=== PATIENT | male | born 1950 | race Caucasian/White ===

== ENCOUNTER 2021-04-15 15:24 | Inpatient (IN) | payer MEDICARE, SELFPAY ==
[2021-04-15] VITALS (36 sets, daily range): BP systolic 79–136; BP diastolic 46–100; PULSE 65–101; RESP 13–28; TEMP 36.3–36.8; O2SAT 92–99; BMI 33.5
--- NOTE | ~2021-04-15 | CT_ITS ---
EXAMINATION: CTA chest PE protocol DATE: 04/15/2021 17:47 INDICATION: Chest pain, cough, fever and elevated d-dimer TECHNIQUE: Computed tomography (CT) pulmonary angiogram of the chest was performed with 100 mL Omnipa que-350 intravenous contrast. Additional 3D reconstructions utilizing coronal maximum intensity proje ction (MIP) were performed. Automated exposure control and iterative reconstruction technique were em ployed. The dose-length product was 700.32 mGy-cm. COMPARISON: None FINDINGS: Suboptimal contrast opacification of the pulmonary arteries with the peak of the contrast bolus in th e pulmonary veins and left heart. There is mild streak artifact from dense contrast in the superior v raul cava and right atrium. Mild respiratory motion in the bilateral lower lung zones. Together this d ecreases sensitivity in the basilar segmental and subsegmental pulmonary arteries. No definitive pulm onary embolism. Elevation the right hemidiaphragm with discoid and basilar compressive atelectasis in the right lower lobe. Multiple small groundglass nodules in the left lower lobe and one in the poste rior right upper lobe most suspicious for multifocal pneumonia. No pulmonary edema or pleural effusio n. A few small bilateral calcified pulmonary nodules along with calcified right hilar lymph nodes con sistent with old granulomatous disease. Heart size is normal. Atherosclerotic coronary artery calcifi cations. No pericardial effusion. Thoracic aorta is normal in caliber with no dissection. No patholog ically enlarged thoracic lymphadenopathy. Small region of cortical scarring at the lower pole of the right kidney. There are bridging osteophytes at multiple levels in the spine, consistent with diffuse idiopathic skeletal hyperostosis (DISH). IMPRESSION: 1. No definitive pulmonary most . Sensitivity is significantly decreased in the segmental and subsegm ental pulmonary arteries of the lower lungs due to suboptimal contrast opacification and respiratory motion. 2. Multiple groundglass nodules in the left lower lobe and one in the posterior right upper lobe most suspicious for multifocal pneumonia. 3. Atelectasis in the right lower lobe with elevation the right hemidiaphragm. Reviewed, dictated and finalized at location A. [facility] IMPRESSION: 1. No definitive pulmonary most . Sensitivity is significantly decreased in the segmental and subsegmental pulmonary arteries of the lower lungs due to subopt imal contrast opacification and respiratory motion. 2. Multiple groundglass nodules in the left lower lobe and one in the posterior right upper lobe most suspicious for multifocal pneumonia. 3. Atelectasis in the right lower lobe with elevation the right hemidiaphragm.
--- NOTE | ~2021-04-15 | XR_ITS ---
EXAMINATION: XR chest 1V portable DATE: 04/15/2021 16:36 INDICATION: Shortness of breath, cough and fever TECHNIQUE: frontal view of the chest was obtained. COMPARISON: None FINDINGS: Linear band of discoid atelectasis/scarring at the right lung base projecting over the elevated right hemidiaphragm. No other airspace opacities, pulmonary edema, pleural effusion or pneumothorax. The c ardiomediastinal silhouette is normal. IMPRESSION: 1. Elevation right hemidiaphragm with discoid atelectasis at the right lung base. Reviewed, dictated and finalized at location A. [facility] IMPRESSION: 1. Elevation right hemidiaphragm with discoid atelectasis at the right lung bas e.
--- NOTE | 2021-04-15 16:21 | ECG_ITS ---
Measurements Intervals [place] Rate: 89 P: 65 IN: 175 QRS: 58 QRSD: 97 T: 53 QT: 362 QTc: 441 Interpretive Statements SINUS RHYTHM BORDERLINE ST-T WAVE ABNORMALITY- ANT/HIGH LAT LEADS BASELINE ARTIFACT- I, II, III, AVR, AVL, AVF, V1-V6 BORDERLINE ECG Electronically Signed On 04-16-2021 7:53:03 [employer] by Bob Mcmullen D.O.
[2021-04-15] MEDS: SODIUM CHLORIDE 0.9% IV 1,000 ML 999 ML IV CONT ×3 (16:51→17:46)
[2021-04-15 16:52] LABS: Alveolar/Arterial O2 Gradient 46.7 mmHg; Base Excess ABG -2.5 mEq/l (+/-2.0); Carboxyhemoglobin 0.6 % THb (0-2.0); Fractional Inspired Oxygen 21 %; HCO3 ABG 20.6 mEq/l (22.0-26.0); Methemoglobin ABG 0.2 %THb (0-1.5); Oxygen Content ABG 17.7 %vol (16.0-22.0); Oxyhemoglobin 91.8 % THb (90.0-100.0); PCO2 ABG 30.9 mmHg (35.0-45.0); PO2 FiO2 Ratio Arterial Blood 3.14 %; Reduced Hemoglobin 7.4 %THb (0-5.0); Total Hemoglobin 13.7 g/dL (12.0-18.0); pH ABG 7.441 (7.350-7.450)
[2021-04-15 16:53] LABS: Device ROOM AIR; Modified Allen's Test Pass; Site Drawn RIGHT RADIAL
[2021-04-15 17:00] LABS: Basophils Absolute Auto 0.1 K/mm3 (0.0-0.1); Basophils Percent Auto 0.3 % (0.2-1.2); Eosinophils Percent Auto 0.1 % (0-4.4); Hematocrit 38.6 % (42.0-52.0); Hemoglobin 13.3 g/dL (14.0-18.0); Immature Granulocyte Absolute 0.07 K/mm3 (0.00-0.031); Immature Granulocyte Percent A 0.4 % (0-0.5); Lymphocytes Absolute Auto 1.88 K/mm3 (0.9-3.2); Lymphocytes Percent Auto 11.7 % (18.3-44.2); Mean Corpuscular HGB Conc 34.5 g/dl (32-36); Mean Corpuscular Volume 95.8 fl (80-100); Mean Platelet Volume 10.7 fl (7.4-10.4); Monocytes Absolute Auto 1.2 K/mm3 (0.1-0.6); Monocytes Percent Auto 7.7 % (2.6-8.5); Neutrophils Absolute Auto 12.8 K/mm3 (1.3-6.7); Neutrophils Percent Auto 79.8 % (45.5-73.1); Platelet Count Result 175 k/mm3 (150-375); Red Blood Count 4.03 M/mm3 (4.6-6.20); Red Cell Distribution Width 12.7 % (11.5-14.5)
--- NOTE | 2021-04-15 17:02 | ED.URI ---
HPI - URI/Sore Throat General Chief Complaint: Upper Respiratory Infection Stated Complaint: cough, fever, sob Time Seen by Provider: 04/15/21 16:08 Source: patient and RN notes reviewed Mode of arrival: ambulatory Limitations: no limitations History of Present Illness HPI Narrative: This is a 70 year old male who presents for evaluation of URI symptoms and shortness of breath. He reports having intermittent episodes of runny nose, cough and low grade fevers over past 1 month. Over past 3 days, he is having fever as high as 102 F. He is also having worsening shortness of breath with exertion and a worsening productive cough. He reports mid chest pressure, nonradiating that only occurs with coughing. He denies nausea, vomiting, loss of taste or smell. He denies abdominal pain or headache. He has taken 3 at home covid test over past 2 weeks. He has been vaccinated for covid with booster and influenza. Related Data Allergies Allergy/AdvReac Type Severity Reaction Status Date / Time No Known Allergies Allergy Verified 04/15/21 16:09 Review of Systems Review of Systems: All systems reviewed & are unremarkable except as noted in HPI and below PMFSH Past Medical History Medical History (Updated 04/15/21 @ 19:06 by Abigail Phillip MD) AAA (abdominal aortic aneurysm) Anxiety Hypertension Myocardial infarction Surgical History Surgical History (Updated 04/15/21 @ 17:04 by Abigail Phillip MD) History of back surgery S/P AAA repair Social History Social History (Updated 04/15/21 @ 17:05 by Abigail Phillip MD) Smoking status: Former smoker Exam Const: General: no acute distress and alert Orientation/consciousness: patient oriented x3 Eyes: EOM: EOMs intact bilaterally Resp: Effort & Inspection: normal respiratory effort, not labored, no retractions and not tachypneic Auscultation: rhonchi Cardio: Rate: regular rate Rhythm: regular rhythm Heart sounds: no murmurs GI: GI Palp: Yes Soft to palpation, No Tenderness to palpation present (GI) and No Guarding due to palpation present (GI) Auscultation: normal bowel sounds Skin: General skin exam: normal color Neuro: General: patient oriented x3, moves all extremities and CN's II-XI intact bilaterally Extrem: General: normal to inspection Psych: Mental Status: mental status grossly normal Affect: normal affect Course Reevaluation(s) Reevaluation #1: Patient states he feels much better. BP is now 93/56. I discussed with Jazmin Antonio who accepts patient to hospitalist service. I spoke with Dr. Benavides who states if patient's BP continues to improve after more fluids he can be admitted to IMU but if he is still hypotensive then he can go to ICU. Date: 04/15/21 Time: 19:04 Vital Signs Vital signs: Vital Signs Temperature 97.4 F L 04/15/21 15:29 Pulse Rate 101 H 04/15/21 15:29 Respiratory Rate 28 H 04/15/21 15:29 Blood Pressure 136/100 H 04/15/21 15:29 Pulse Oximetry 93 04/15/21 15:29 Temperature 97.4 F L 04/15/21 15:29 Pulse Rate 67 04/15/21 20:06 Respiratory Rate 15 04/15/21 20:06 Blood Pressure 107/59 L 04/15/21 19:57 Pulse Oximetry 95 04/15/21 20:02 MDM - URI/Sore Throat Lab Data Attestation: I reviewed the patient's lab results. Result diagrams: 04/15/21 16:40 04/15/21 16:40 Labs: Lab Results 04/15/21 04/15/21 04/15/21 Range/Units 16:37 16:40 16:40 WBC 16.0 H (4.5-10.0) K/mm3 RBC 4.03 L (4.6-6.20) M/mm3 Hgb 13.3 L (14.0-18.0) g/dL Hct 38.6 L (42.0-52.0) % MCV 95.8 (80-100) fl MCH 33.0 (26-34) pg MCHC 34.5 (32-36) g/dl RDW 12.7 (11.5-14.5) % Plt Count 175 (150-375) k/mm3 MPV 10.7 H (7.4-10.4) fl Immature Gran % (Auto) 0.4 (0-0.5) % Neut % (Auto) 79.8 H (45.5-73.1) % Lymph % (Auto) 11.7 L (18.3-44.2) % [place] % (Auto) 7.7 (2.6-8.5) % Eos % (Auto) 0.1 (0-4.4) % Baso % (Auto)
[2021-04-15 17:09] LABS: INR 1.1; Prothrombin Time 14.2 Seconds (11.1-14.7)
[2021-04-15 17:10] LABS: Partial Thromboplastin Time 30.3 SECONDS (22.3-36.8)
[2021-04-15 17:11] LABS: Lactic Acid Reflex 1.8 mmol/L (0.7-2.1)
[2021-04-15 17:12] LABS: D Dimer 2.35 ug/mL (<0.48)
[2021-04-15 17:14] LABS: Alanine Aminotransferase 20 U/L (4-50); Albumin Level 4.6 g/dL (3.5-5.1); Alkaline Phosphatase 79 U/L (38-126); Anion Gap 10 mmol/L (8-16); Aspartate Amino Transferase 30 U/L (17-59); Bilirubin,Total 1.1 mg/dL (0.2-1.3); Blood Urea Nitrogen 23 mg/dL (9-20); CRP 3.8 mg/dL (<1.0); Calcium 9.5 mg/dL (8.4-10.2); Carbon Dioxide 25 mmol/L (22-30); Chloride 98 mmol/L (98-107); Estimated CRCL calculation 66 ml/min; Estimated Glomerular Filt Rate 60; Glucose 123 mg/dL (65-110); Magnesium 1.7 mg/dL (1.6-2.3); Potassium 3.7 mmol/L (3.4-5.0); Sodium 133 mmol/L (137-145)
[2021-04-15 17:24] LABS: NT Pro B Type Natriuretic Pept 171 pg/mL (5-100); Troponin I < 0.012 ng/mL (0.000-0.034)
[2021-04-15] MEDS: SODIUM CHLORIDE 0.9% IV 500 ML 999 ML IV CONT (19:07)
[2021-04-15 19:18] LABS: SARS-CoV-2 RNA PCR Negative
--- NOTE | 2021-04-15 19:27 | PM.IMHP ---
H&P: HPI History of Present Illness Date/Time: 04/15/21 19:27 Chief Complaint: Shortness of breath. Narrative: This is a 70-year-old male with past medical history significant for hypertension, [place], abdominal aortic aneurysm, COVID Long hauler, chronic hypoxic respiratory failure, chronic cough. Patient presents to the emergency room due to shortness of breath and cough that is persistent with wheezing as well. Patient states that this has been happening for long time now ever since he had COVID. Patient denies any fevers, rigors, chills, there is scanty production on of clear phlegm with the cough, no PND ,no orthopnea, no leg swelling, no dizziness, no syncope or near syncope ,no chest pain, no nausea, no vomiting, no abdominal pain, no calves pain. Preliminary workup was significant for CT of chest angio for ground-glass opacities, a chest x-ray showed right-sided hemidiaphragm paralysis. Patient is been admitted for further evaluation management and treatment. Review of Systems Review of Systems: Shortness of breath, persistent dry cough, wheezing. Constitutional: Constitutional: Denies chills, Denies fatigue, Denies fever(s), Denies malaise, Denies night sweats and Denies weakness Eyes: Eyes: Denies change in vision ENT: Denies dysphagia, Denies vertigo, Denies dizziness, Denies nasal congestion, Denies nasal discharge, Denies nasal obstruction and Denies odynophagia Cardiovascular: Cardiovascular: Denies chest pain, Denies claudication, Denies leg edema, Denies lightheadedness, Denies radiating jaw, neck or arm pain, Denies palpitations and Reports dyspnea on exertion Respiratory: Respiratory: Reports cough, Reports dyspnea and Reports wheezing Gastrointestinal: Gastrointestinal: Denies abdominal pain, Denies dyspepsia, Denies heartburn, Denies nausea and Denies vomiting Genitourinary: Genitourinary: Reports no additional male genitourinary complaints, Reports as per HPI and Denies dysuria Musculoskeletal: Musculoskeletal: Denies arthralgias, Denies joint swelling and Denies muscle weakness Integumentary/Breasts: Skin/Breast: Denies rash Neurologic: Denies focal weakness and Denies Sensory deficit (Neuro) Psychiatric: Psychiatric: Reports no additional psychiatric complaints and Reports as per HPI Endocrine: Endocrine: Denies cold intolerance, Denies flushing, Denies heat intolerance, Denies polyphagia, Denies polydipsia, Denies polyuria and Denies palpitations Hematologic/Lymphatic: Hematologic/Lymphatic: Reports no additional hematologic/lymphatic complaints and Reports as per HPI Allergic/Immunologic: Allergic/Immunologic: Reports no additional allergic/immunologic complaints and Reports as per HPI PMFSH Past Medical History Medical History (Updated 04/16/21 @ 02:48 by Beck Das MD) AAA (abdominal aortic aneurysm) Anxiety Hypertension Myocardial infarction Surgical History Surgical History (Updated 04/15/21 @ 17:04 by Abigail Phillip MD) History of back surgery S/P AAA repair Social History Social History (Updated 04/15/21 @ 17:05 by Abigail Phillip MD) Smoking packs per day: 1.5 Smoking cigarettes per day: 30.0 Years smoked: 20 Smoking pack-years: 30.00 Smoking status: Former smoker Spiritual care concerns: No Meds Home Medications and Allergies Home Medications Medication Instructions Recorded Confirmed Type albuterol sulfate 2 puff INHALATION DAILY 04/15/21 04/15/21 History aspirin [Aspir-81] 1 mg PO DAILY 04/15/21 04/15/21 History citalopram 20 mg PO DAILY 04/15/21 04/15/21 History diltiazem HCl 180 mg PO HS 04/15/21 04/15/21 History hydrocodone-acetaminophen 1 tablet PO Q6H 04/15/21 04/15/21 History isosorbide mononitrate 30 mg PO DAILY 04/15/21 04/15/21 History lisinopril-hydrochlorothiazide 2 tablet PO HS 04/15/21 04/15/21 History metoprolol succinate 1 mg PO DAILY 04/15/21 04/15/21 History mv,Ca,tyw-wgfd-VH-lycopene 1 tablet PO DAILY 04/15/21 04/15/21 History [C
[2021-04-15] MEDS: IPRATROPIUM BR 0.02% INH SOLN 0.5 MG/2.5 ML VIAL INHALATION (19:57)
[2021-04-15] MEDS: ALBUTEROL SULFATE NEB 2.5 MG/0.5 ML INH 5 MG INHALATION (19:57)
[2021-04-15 20:19] LABS: Add Urine Microscopic? NO; Appearance Urine Clear (Clear); Bilirubin Urine Negative (Negative); Blood Urine Negative (Negative); Color Urine Yellow (Yellow); Glucose Urine UA Negative (Negative); Ketones Urine Negative (Negative); Leukocyte Esterase Ur Negative LEU/UL (Negative); Nitrate Urine Negative (Negative); Protein Urine Negative (Negative); Urobilinogen Urine Negative mg/dL (<2.0)
[2021-04-15 20:22] LABS: Specific Grav Ur 1.031 (1.001-1.035)
[2021-04-15] MEDS: SODIUM CHLORIDE 0.9% IV 1,000 ML 125 ML IV CONT (22:59)
[2021-04-15] MEDS: HYDROcodone/acetaminophen (*CRX) 7.5-325 MG TABLET 1 TAB PO (23:00)
[2021-04-15] MEDS: dilTIAZem HCL CD 180 MG CAP.ER.24H PO (23:00)
--- NOTE | 2021-04-15 23:55 | ADMGEN ---
This patient, Alex Johnson, was admitted to IMU Room 206-02 on 04/15/21 at 2100. Patient/family oriented to hospital policies and general routines including ID bracelet, bed and alarms, visiting hours, pain management, procedures, bathroom and other care routines, personal items, smoking policy, room service/diet, and visiting hours. Information on how to activate the Rapid Response Team has been discussed. Patient/Family are encouraged to report perceived risks to care and to ask questions if they do not understand what they are told or what they should do.
[2021-04-16] VITALS (27 sets, daily range): BP systolic 94–133; BP diastolic 53–73; PULSE 54–84; RESP 16–22; TEMP 35.6–36.9; O2SAT 92–97
--- NOTE | 2021-04-16 | ECHO_ITS ---
Patient Info Name: Alex Johnson Age: 70 years : 1950 Gender: Male Ht: 73 in Wt: 253 lbs BSA: 2.47 m2 HR: 60 bpm BP: 133 / 64 mmHg Heart Rhythm: Sinus Rhythm Technical Quality: Fair Exam Date: 04/16/2021 8:51 AM Exam Location: [facility] Patient Status: Outpatient Admit Date: 04/15/2021 Staff Ordering Physician: Beck Das MD Applications Specialist: Bettina Todd RDCS Attending Provider: Beck Das MD Referring Physician: Pippa ROMERO; Exam Type: CA echo doppler color flow Study Info Indications R06.02 - Shortness of breath Complete two-dimensional, color flow and Doppler transthoracic echocardiogram is performed. Summary 1. Complete two-dimensional, color flow and Doppler transthoracic echocardiogram is performed. 2. Left ventricular chamber dimension is normal. 3. Left ventricular systolic function is normal, estimated at 55-60%. 4. Left atrial chamber dimension is mildly enlarged. 5. There is trace mitral valve regurgitation. 6. There is mild aortic valve sclerosis. Left Ventricle Left ventricular chamber dimension is normal. Left ventricular systolic function is normal, estimated at 55-60%. The left ventricular diastolic function is normal. Right Ventricle Right ventricular chamber dimension is normal. Left Atria Left atrial chamber dimension is mildly enlarged. Right Atria Right atrial chamber dimension is normal. Aortic Valve The aortic valve is trileaflet. There is mild aortic valve sclerosis. Pulmonic Valve The pulmonic valve is normal. Mitral Valve The mitral valve has normal leaflets. There is trace mitral valve regurgitation. Tricuspid Valve The tricuspid valve leaflets are normal. Pericardium/Pleural The pericardium appears normal. Aorta The aortic root size at the sinus of Valsalva is normal. Left Ventricular Outflow Tract Name Value Normal LVOT 2D LVOT Diameter 2.0 cm LVOT Doppler LVOT Peak Gradient 4 mmHg LVOT Mean Gradient 2 mmHg LVOT VTI 25 cm LVOT VTI/AV VTI Ratio 0.8 LVOT Stroke Volume 76 ml Pulmonic Valve Name Value Normal RVOT Doppler RVOT Peak Gradient 2 mmHg PV Doppler PV Peak Gradient 3 mmHg Mitral Valve Name Value Normal MV Doppler MV Decel [facility] 492 cm/s2 MV PHT 55 ms MV Area
[2021-04-16] MEDS: IPRATROPIUM BR 0.02% INH SOLN 0.5 MG/2.5 ML VIAL INHALATION ×4 (02:20→20:10)
[2021-04-16] MEDS: ALBUTEROL SULFATE NEB 2.5 MG/0.5 ML INH 5 MG INHALATION ×4 (02:20→20:10)
[2021-04-16] MEDS: HYDROcodone/acetaminophen (*CRX) 7.5-325 MG TABLET 1 TAB PO ×4 (03:55→20:42)
[2021-04-16 05:07] LABS: Basophils Percent Auto 0.2 % (0.2-1.2); Eosinophils Absolute Auto 0.1 K/mm3 (0-0.3); Eosinophils Percent Auto 0.8 % (0-4.4); Hematocrit 32.2 % (42.0-52.0); Hemoglobin 10.6 g/dL (14.0-18.0); Immature Granulocyte Absolute 0.04 K/mm3 (0.00-0.031); Immature Granulocyte Percent A 0.4 % (0-0.5); Immature Platelet Fraction Pct 4.9 % (0.9-11.2); Lymphocytes Absolute Auto 1.75 K/mm3 (0.9-3.2); Lymphocytes Percent Auto 16.7 % (18.3-44.2); Mean Corpuscular HGB Conc 32.9 g/dl (32-36); Mean Corpuscular Hemoglobin 33.1 pg (26-34); Mean Corpuscular Volume 100.6 fl (80-100); Mean Platelet Volume 10.5 fl (7.4-10.4); Monocytes Absolute Auto 0.9 K/mm3 (0.1-0.6); Monocytes Percent Auto 8.1 % (2.6-8.5); Neutrophils Absolute Auto 7.7 K/mm3 (1.3-6.7); Neutrophils Percent Auto 73.8 % (45.5-73.1); Platelet Count Result 146 k/mm3 (150-375); Red Cell Distribution Width 12.8 % (11.5-14.5); White Blood Count 10.5 K/mm3 (4.5-10.0)
[2021-04-16 05:16] LABS: Alanine Aminotransferase 16 U/L (4-50); Albumin Level 3.4 g/dL (3.5-5.1); Alkaline Phosphatase 54 U/L (38-126); Anion Gap 6 mmol/L (8-16); Aspartate Amino Transferase 26 U/L (17-59); Bilirubin,Total 0.6 mg/dL (0.2-1.3); Blood Urea Nitrogen 19 mg/dL (9-20); Calcium 8.5 mg/dL (8.4-10.2); Carbon Dioxide 25 mmol/L (22-30); Chloride 108 mmol/L (98-107); Estimated CRCL calculation 98 ml/min; Estimated Glomerular Filt Rate > 60; Glucose 101 mg/dL (65-110); Potassium 3.5 mmol/L (3.4-5.0); Sodium 139 mmol/L (137-145)
[2021-04-16 05:24] LABS: NT Pro B Type Natriuretic Pept 276 pg/mL (5-100)
--- NOTE | 2021-04-16 11:30 | PM.CNPUL ---
Assessment and Plan Assessment and plan (1) COPD exacerbation: Code(s): J44.1 - Chronic obstructive pulmonary disease with (acute) exacerbation Status: Acute Assessment and Plan: This 70-year-old man presented with few week history of shortness of breath upper respiratory system she does cough and wheezing. Chest imaging studies showed chronically elevated right hemidiaphragm and small infiltrate in left lower lobe suggestive of possible lower respiratory tract infection. The patient has been treated with IV fluids for low blood pressure and also with antibiotics with some improvement. He continues to be on IV fluids. Physical exam he has diffuse wheezing which in conjunction with the patient's history and the chest CT findings suggest probable COPD exacerbation. I will continue with current antibiotic regimen, decrease IV fluid rate, continue with nebulized short-acting bronchodilators. I started the patient on IV steroids. (2) Elevated diaphragm: Code(s): J98.6 - Disorders of diaphragm Status: Acute History of Present Illness History of Present Illness Consult date: 04/16/21 Chief complaint: dehydration, sepsis, pneomonia Narrative: This 70-year-old man presented with cough fever and shortness of breath. The patient has had upper respiratory symptoms on and off for more than a month. He also had febrile illness with low-grade temperature cough and wheezing also for for few weeks. Patient never had history of COPD or asthma. He used to smoke 1.5 packs per day for more than 20 years. He quit 10 years ago. The patient has been treated with antibiotics with some improvement since admission. patient has been treated with IV fluids presumably for borderline low blood pressure. blood cultures are negative so far. Chest imaging studies with chest x-ray and chest CT showed right diaphragm elevation with associated atelectasis in the right lower lobe, and small infiltrates /ground-glass opacities in the left lower lobe. There is also evidence of a bronchial wall thickening and mild emphysema. Review of Systems Review of Systems: The patient reports some weight gain over the last couple of years. He has had a history of nasal allergies. He sleeps in a recliner because of back problems. Has history of acid reflux disease and has been on medications. He has no nausea vomiting diarrhea or abdominal pain. He has had some urinary problems related to enlarged prostate. He has no lower extremity edema. He had a previous sleep study showed no evidence of sleep apnea. The remainder of the 12 point system review is negative PMFSH Past Medical History Medical History (Updated 04/16/21 @ 11:40 by Parviz Jones MD) AAA (abdominal aortic aneurysm) Anxiety Hypertension Myocardial infarction Surgical History Surgical History (Updated 04/15/21 @ 17:04 by Abigail Phillip MD) History of back surgery S/P AAA repair Family History Family History (Updated 04/16/21 @ 06:48 by Dorina Ortiz RN) Sibling Cancer Father Cancer Mother Tuberculosis Father Heart attack Social History Social History (Updated 04/15/21 @ 17:05 by Abigail Phillip MD) Smoking packs per day: 1.5 Smoking cigarettes per day: 30.0 Years smoked: 20 Smoking pack-years: 30.00 Smoking status: Former smoker Spiritual care concerns: No Meds Home Medications and Allergies Home Medications Medication Instructions Recorded Confirmed Type albuterol sulfate 2 puff INHALATION DAILY 04/15/21 04/15/21 History aspirin [Aspir-81] 1 mg PO DAILY 04/15/21 04/15/21 History citalopram 20 mg PO DAILY 04/15/21 04/15/21 History diltiazem HCl 180 mg PO HS 04/15/21 04/15/21 History hydrocodone-acetaminophen 1 tablet PO Q6H 04/15/21 04/15/21 History isosorbide mononitrate 30 mg PO DAILY 04/15/21 04/15/21 History lisinopril-hydrochlorothiazide 2 tablet PO HS 04/15/21 04/15/21 History metoprolol succinate 1 mg
[2021-04-16] MEDS: PANTOPRAZOLE 40 MG TABLET PO (12:02)
[2021-04-16] MEDS: ISOSORBIDE MONONITRATE 30 MG TAB.ER.24H PO (12:02)
[2021-04-16] MEDS: ASPIRIN 81 MG ENTERIC TABLET PO (12:02)
[2021-04-16] MEDS: THERAPEUTIC MULTIVITAMINS/MINERALS TAB (*BKC) 1 TABLET PO (12:02)
[2021-04-16] MEDS: METOPROLOL SUCCINATE EXT REL 50 MG TABCR PO (12:03)
[2021-04-16] MEDS: CITALOPRAM HYDROBROMIDE 20 MG TABLET PO (12:03)
[2021-04-16] MEDS: ROSUVASTATIN 10 MG TABLET 20 MG PO (12:03)
[2021-04-16] MEDS: SODIUM CHLORIDE 0.9% IV 1,000 ML 125 ML IV CONT ×2 (12:06→20:44)
[2021-04-16] MEDS: ENOXAPARIN 40 MG/0.4 ML SYRINGE SUB-Q (12:17)
--- NOTE | 2021-04-16 14:45 | PM.IMPN ---
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 (2) Persistent cough: Code(s): R05.3 - Chronic cough Status: Acute Assessment and Plan: Supportive care Continue to monitor (3) COVID-19 long hauler manifesting chronic dyspnea: Code(s): R06.09 - Other forms of dyspnea; U09.9 - Post COVID-19 condition, unspecified Status: Acute Assessment and Plan: Pulmonology consulted Subjective Date/time seen: 04/16/21 14:45 Chief Complaint: Shortness of breath. HPI:Narrative: This is a 70-year-old male with past medical history significant for hypertension, [place], abdominal aortic aneurysm, COVID Long hauler, chronic hypoxic respiratory failure, chronic cough. Patient presents to the emergency room due to shortness of breath and cough that is persistent with wheezing as well. Patient states that this has been happening for long time now ever since he had COVID. Patient denies any fevers, rigors, chills, there is scanty production on of clear phlegm with the cough, no PND ,no orthopnea, no leg swelling, no dizziness, no syncope or near syncope ,no chest pain, no nausea, no vomiting, no abdominal pain, no calves pain. Preliminary workup was significant for CT of chest angio for ground-glass opacities, a chest x-ray showed right-sided hemidiaphragm paralysis. Patient is been admitted for further evaluation management and treatment. 04/16/2021 interval history: patient is a 70-year-old male presented with a cough shortness of breath and wheezing patient seen by rotary veneer machine operator and suspect patient has exacerbation of COPD started the patient on methylprednisone, DuoNeb and continued ceftriaxone and azithromycin, patient states is feeling much better compared to when he arrived, will continue present management and further recommendation to follow. Review of Systems Review of Systems: All systems reviewed & are unremarkable except as noted in HPI and below Exam Narrative: Patient is comfortable, NAD HEENT: eyes are clear and none icteric LUNGS: bilateral fair air entry with wheezing and rhonchi HEART: RR S1S2 ABD: BS+, Soft and nontender Lower extremities: no edema SKIN: nonjaundiced Neuro: grossly intact. Objective Data Vital Signs Vital Signs: Vital Signs - 24 hr 04/15/21 15:29 04/15/21 16:09 04/15/21 16:10 Temperature 97.4 F L Pulse Rate 101 H 90 85 Respiratory Rate 28 H 19 21 H Blood Pressure 136/100 H 104/64 104/64 Pulse Oximetry 93 92 93 04/15/21 16:21 04/15/21 16:31 04/15/21 16:32 Temperature Pulse Rate 93 83 87 Respiratory Rate 13 17 18 Blood Pressure Pulse Oximetry 96 94 97 04/15/21 16:45 04/15/21 16:46 04/15/21 16:47 Temperature Pulse Rate 83 81 84 Respiratory Rate 26 H 18 20 Blood Pressure 80/46 L Pulse Oximetry 92 92 92 04/15/21 17:00 04/15/21 17:01 04/15/21 17:15 Temperature Pulse Rate 76 76 71 Respiratory Rate 19 19 15 Blood Pressure 81/52 L Pulse Oximetry 94 92 92 04/15/21 17:16 04/15/21 17:23 04/15/21 17:44 Temperature Pulse Rate 76 70 Respiratory Rate 14 15 Blood Pressure 80/46 L 82/48 L Pulse Oximetry 92 92 94 04/15/21 17:45 04/15/21 17:46 04/15/21 17:47 Temperature Pulse Rate 69 69 70 Respiratory Rate 19 18 13 Blood Pressure 85/51 L Pulse Oximetry 92
[2021-04-16] MEDS: methylPREDNISolone SOD SUCC 40 MG VIAL IV PUSH ×2 (15:53→20:41)
--- NOTE | 2021-04-16 16:13 | PC.NURSE ---
Notified Dr crawford patients blood oressure and pulse have been low. Patient also stated his pulse and blood pressure have been low at home. Dr Crawford ordered Metoprolol dose to be cut in half from 50mg daily to 25mg daily.
[2021-04-16] MEDS: hydroCHLOROthiazide 25 MG TABLET PO (20:41)
[2021-04-16] MEDS: lisinopriL 20 MG TABLET 40 MG PO (20:42)
[2021-04-16] MEDS: dilTIAZem HCL CD 180 MG CAP.ER.24H PO (20:43)
[2021-04-16] MEDS: polyethylene glycoL 3350 17 GM POWD.PACK PO (23:04)
[2021-04-17] VITALS (22 sets, daily range): BP systolic 115–146; BP diastolic 56–78; PULSE 57–77; RESP 15–20; TEMP 36.1–36.6; O2SAT 92–97
[2021-04-17] MEDS: ALBUTEROL SULFATE NEB 2.5 MG/0.5 ML INH 5 MG INHALATION ×4 (01:38→20:14)
[2021-04-17] MEDS: IPRATROPIUM BR 0.02% INH SOLN 0.5 MG/2.5 ML VIAL INHALATION ×4 (01:38→20:14)
[2021-04-17] MEDS: HYDROcodone/acetaminophen (*CRX) 7.5-325 MG TABLET 1 TAB PO ×4 (03:41→22:00)
[2021-04-17] MEDS: methylPREDNISolone SOD SUCC 40 MG VIAL IV PUSH (05:15)
[2021-04-17 06:17] LABS: Anion Gap 9 mmol/L (8-16); Blood Urea Nitrogen 13 mg/dL (9-20); Calcium 9.2 mg/dL (8.4-10.2); Carbon Dioxide 24 mmol/L (22-30); Chloride 105 mmol/L (98-107); Estimated CRCL calculation 149 ml/min; Estimated Glomerular Filt Rate > 60; Glucose 171 mg/dL (65-110); Potassium 3.5 mmol/L (3.4-5.0); Sodium 138 mmol/L (137-145)
[2021-04-17] MEDS: SODIUM CHLORIDE 0.9% IV 1,000 ML 125 ML IV CONT (08:53)
[2021-04-17] MEDS: ISOSORBIDE MONONITRATE 30 MG TAB.ER.24H PO (08:55)
[2021-04-17] MEDS: ASPIRIN 81 MG ENTERIC TABLET PO (08:56)
[2021-04-17] MEDS: ROSUVASTATIN 10 MG TABLET 20 MG PO (08:56)
[2021-04-17] MEDS: THERAPEUTIC MULTIVITAMINS/MINERALS TAB (*BKC) 1 TABLET PO (08:56)
[2021-04-17] MEDS: PANTOPRAZOLE 40 MG TABLET PO (08:56)
[2021-04-17] MEDS: CITALOPRAM HYDROBROMIDE 20 MG TABLET PO (08:56)
[2021-04-17] MEDS: METOPROLOL SUCCINATE EXT REL 25 MG TABCR PO (09:19)
--- NOTE | 2021-04-17 10:09 | PM.PNPUL ---
Progress Note: A&P Assessment and Plan (1) COPD exacerbation: Code(s): J44.1 - Chronic obstructive pulmonary disease with (acute) exacerbation Status: Acute Assessment and Plan: 70-year-old man with history of a cough wheezing on and off for couple of weeks prior to this hospitalization has been treated for COPD exacerbation with significant clinical improvement. Currently on exam there is significant decrease of wheezing while the patient has been on nebulized bronchodilators and IV steroids. I have discontinued the IV steroids and have started the patient on prednisone 30 mg p.o. starting in a.m.. anticipate discharging patient in a.m., on a regimen: Augmentin 874/125 bid for 8 days, Symbicort 160/4.5 inhaler two puffs bid, Albuterol inhaler qid prn, and prednisone 30 mg po daily for 5 days. patient needs to return to pulmonary clinic in approximately 2 weeks from today for re-evaluation for COPD. 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 On physical exam he has signs suggesting diaphragm paralysis. Patient will need apnea link at home to assess for possible nocturnal hypoventilation related to hemidiaphragm paralysis. This will be arranged on an outpatient basis after the patient returns to Pulmonary Clinic for re-evaluation. Subjective Date/time seen: 04/17/21 10:09 patient doing a lot better. Coughing less. Afebrile. Still some wheezing but less than before. Review of Systems Review of Systems: All systems reviewed & are unremarkable except as noted in HPI and below Exam Narrative: GENERAL APPEARANCE: Well developed, well nourished, alert and cooperative, and appears to be in no acute distress SKIN: Inspection of the skin reveals no rashes, ulcerations or petechiae. HEENT: Sclerae anicteric and conjunctivae pink and moist. Extraocular movements were intact and pupils were equal, round, and reactive to light. The oral mucosa, hard and soft palate, tongue and posterior pharynx were normal. NECK: Supple. There was no thyroid enlargement, and no tenderness, or masses were felt. CHEST: Normal AP diameter and normal contour without any kyphoscoliosis. LUNGS: Auscultation of the lungs revealed bilateral wheezing. CARDIAC: There was a regular rate and rhythm without any murmurs, gallops, rubs. ABDOMEN: Soft and nontender with normal bowel sounds. There was no organomegaly. LYMPH NODES: No lymphadenopathy was appreciated in the neck. EXTREMITIES: No cyanosis, clubbing or edema. NEUROLOGIC: Alert and oriented x 3. Normal affect. Objective Data Vital Signs Vital Signs: Vital Signs - 24 hr 04/16/21 12:00 04/16/21 12:03 04/16/21 12:36 Temperature 36.5 C Pulse Rate 66 64 58 L Respiratory Rate 20 Blood Pressure 116/73 Pulse Oximetry 95 95 04/16/21 13:34 04/16/21 13:44 04/16/21 14:00 Temperature Pulse Rate 55 L 58 L 63 Respiratory Rate 18 16 Blood Pressure Pulse Oximetry 04/16/21 15:56 04/16/21 16:00 04/16/21 18:00 Temperature 35.6 C L Pulse Rate 66 57 L 56 L Respiratory Rate 18 Blood Pressure 94/53 L Pulse Oximetry 95 95 04/16/21 20:00 04/16/21 20:10 04/16/21 20:20 Temperature 36.9 C Pulse Rate 61 59 L 59 L Respiratory Rate 18 18 Blood Pressure 106/57 L Pulse Oximetry 94 04/16/21 20:22 04/16/21 22:00 04/16/21 23:10 Temperature 35.8 C L Pulse Rate 59 L 72 70 Respiratory Rate 18 Blood Pressure 126/59 L Pulse Oximetry 94 97 04/16/21 23:21 04/17/21 01:40 04/17/21 01:50 Temperature Pulse Rate 74 58 L 57 L Respiratory Rate 18 18 18 Blood Pressure Pulse Oximetry 97 04/17/21 02:00 04/17/21 04:00 04/17/21 04:37 Temperature 36.1 C L 36.1 C L Pulse Rate 57 L 65 65 Respiratory Rate 15 15 Blood Pressure 136/62 136/62 Pulse Oximetry 95 95
[2021-04-17] MEDS: ENOXAPARIN 40 MG/0.4 ML SYRINGE SUB-Q (11:42)
--- NOTE | 2021-04-17 11:59 | PM.IMPN ---
Progress Note: A&P Assessment and Plan (1) Multifocal pneumonia: Code(s): J18.9 - Pneumonia, unspecified organism Status: Acute Assessment and Plan: ABG on admission 7.4 Along with COPD exacerbation On IV steroid bronchodilators along with ceftriaxone and azithromycin BNP 171, negative troponin Chest x-ray with elevated right hemidiaphragm with discoid atelectasis at right lung base CTA negative for PE noted ground-glass opacities in left lower lobe and right lower lobe suspicious for multifocal pneumonia Blood culture has been negative Remains on room air (2) Persistent cough: Code(s): R05.3 - Chronic cough Status: Acute Assessment and Plan: Supportive care Continue to monitor Echo with normal ejection fraction 55-60% no significant valvular abnormality (3) COVID-19 long hauler manifesting chronic dyspnea: Code(s): R06.09 - Other forms of dyspnea; U09.9 - Post COVID-19 condition, unspecified Status: Acute Assessment and Plan: COVID infection recently Repeat testing this admission on 04/15/2021 Pulmonology consulted Additional Plan Mild anemia no signs of active bleeding DVT prophylaxis on Lovenox Hypertension on lisinopril isosorbide mononitrate Hyperlipidemia on rosuvastatin GERD on pantoprazole History of abdominal aortic aneurysm status post AAA repair Anxiety History of back surgery Former smoker 1-1/2 pack per day for 20 years quit 10 years ago 04/17/2021. His IV fluids today switch prednisone to oral anticipate discharge in a.m. if remains stable Moved him out of the IMU to general medical floor without telemetry Subjective Date/time seen: 04/17/21 11:59 Interval history: HPI:Narrative: This is a 70-year-old male with past medical history significant for hypertension, MD, abdominal aortic aneurysm, COVID Long hauler, chronic hypoxic respiratory failure, chronic cough. Patient presents to the emergency room due to shortness of breath and cough that is persistent with wheezing as well. Patient states that this has been happening for long time now ever since he had COVID. Patient denies any fevers, rigors, chills, there is scanty production on of clear phlegm with the cough, no PND ,no orthopnea, no leg swelling, no dizziness, no syncope or near syncope ,no chest pain, no nausea, no vomiting, no abdominal pain, no calves pain. Preliminary workup was significant for CT of chest angio for ground-glass opacities, a chest x-ray showed right-sided hemidiaphragm paralysis. Patient is been admitted for further evaluation management and treatment. 04/16/2021 interval history: patient is a 70-year-old male presented with a cough shortness of breath and wheezing patient seen by construction craft laborer and suspect patient has exacerbation of COPD started the patient on methylprednisone, DuoNeb and continued ceftriaxone and azithromycin, patient states is feeling much better compared to when he arrived, will continue present management and further recommendation to follow. 04/17/2021 no overnight events. Feeling better. Still has some cough and occasional wheezes. Denies any shortness of breath. No leg swelling no events on telemetry Review of Systems Review of Systems: All systems reviewed & are unremarkable except as noted in HPI and below Exam Narrative: Patient is comfortable, NAD HEENT: eyes are clear and none icteric LUNGS: bilateral fair air entry with no wheezing noted HEART: RR S1S2 ABD: BS+, Soft and nontender Lower extremities: no edema cyanosis or clubbing SKIN: nonjaundiced Neuro: grossly intact. Alert and oriented x3 Objective Data Vital Signs Vital Signs: Vital Signs - 24 hr 04/16/21 12:00 04/16/21 12:03 04/16/21 12:36 Temperature 97.7 F Pulse Rate 66 64 58 L Respiratory Rate 20 Blood Pressure 116/73 Pulse Oximetry 95 95 04/16/21 13:34 04/16/21 13:44 04/16/21 14:00 Temperature Pulse Rate 55 L 58 L 63 Respiratory
--- NOTE | 2021-04-17 14:28 | PC.NURSE ---
pt was transferred to room 246 at 1425. Receiving RN Zaida given report, no questions. all belongings and medications sent with patient.
--- NOTE | 2021-04-17 14:29 | PC.NURSE ---
This patient, Alex Johnson, was received from IMU on 04/17/21 at 1522. Patient/family oriented to unit policies and routines. Report received from MARIA ISABEL Espinosa.
[2021-04-17] MEDS: ALBUTEROL SULFATE (*SP) AEROSOL 1 PUFF INHALATION (18:28)
[2021-04-17] MEDS: lisinopriL 20 MG TABLET 40 MG PO (21:53)
[2021-04-17] MEDS: dilTIAZem HCL CD 180 MG CAP.ER.24H PO (21:53)
[2021-04-17] MEDS: hydroCHLOROthiazide 25 MG TABLET PO (21:53)
[2021-04-18] VITALS (8 sets, daily range): BP systolic 118–130; BP diastolic 60–61; PULSE 68–88; RESP 16–18; TEMP 36.6–36.8; O2SAT 93–100
[2021-04-18] MEDS: ALBUTEROL SULFATE NEB 2.5 MG/0.5 ML INH 5 MG INHALATION ×2 (02:10→08:35)
[2021-04-18] MEDS: IPRATROPIUM BR 0.02% INH SOLN 0.5 MG/2.5 ML VIAL INHALATION ×2 (02:11→08:35)
[2021-04-18] MEDS: HYDROcodone/acetaminophen (*CRX) 7.5-325 MG TABLET 1 TAB PO ×2 (02:48→08:00)
[2021-04-18 06:06] LABS: Basophils Percent Auto 0.1 % (0.2-1.2); Hemoglobin 10.4 g/dL (14.0-18.0); Immature Granulocyte Absolute 0.08 K/mm3 (0.00-0.031); Immature Granulocyte Percent A 0.6 % (0-0.5); Lymphocytes Absolute Auto 0.88 K/mm3 (0.9-3.2); Lymphocytes Percent Auto 6.5 % (18.3-44.2); Mean Corpuscular HGB Conc 33.5 g/dl (32-36); Mean Corpuscular Hemoglobin 32.5 pg (26-34); Mean Corpuscular Volume 96.9 fl (80-100); Mean Platelet Volume 10.9 fl (7.4-10.4); Monocytes Absolute Auto 0.6 K/mm3 (0.1-0.6); Monocytes Percent Auto 4.7 % (2.6-8.5); Neutrophils Absolute Auto 11.9 K/mm3 (1.3-6.7); Neutrophils Percent Auto 88.1 % (45.5-73.1); Platelet Count Result 165 k/mm3 (150-375); Red Cell Distribution Width 12.7 % (11.5-14.5); White Blood Count 13.5 K/mm3 (4.5-10.0)
[2021-04-18 06:32] LABS: Alanine Aminotransferase 24 U/L (4-50); Albumin Level 3.9 g/dL (3.5-5.1); Alkaline Phosphatase 49 U/L (38-126); Anion Gap 8 mmol/L (8-16); Aspartate Amino Transferase 42 U/L (17-59); Bilirubin,Total 0.5 mg/dL (0.2-1.3); Blood Urea Nitrogen 14 mg/dL (9-20); Calcium 9.1 mg/dL (8.4-10.2); Carbon Dioxide 26 mmol/L (22-30); Chloride 103 mmol/L (98-107); Estimated CRCL calculation 128 ml/min; Estimated Glomerular Filt Rate > 60; Glucose 151 mg/dL (65-110); Potassium 3.4 mmol/L (3.4-5.0); Sodium 137 mmol/L (137-145)
[2021-04-18] MEDS: predniSONE 20 MG, predniSONE 10 MG 30 MG PO (07:59)
[2021-04-18] MEDS: THERAPEUTIC MULTIVITAMINS/MINERALS TAB (*BKC) 1 TABLET PO (08:00)
[2021-04-18] MEDS: ROSUVASTATIN 10 MG TABLET 20 MG PO (08:00)
[2021-04-18] MEDS: PANTOPRAZOLE 40 MG TABLET PO (08:00)
[2021-04-18] MEDS: CITALOPRAM HYDROBROMIDE 20 MG TABLET PO (08:00)
[2021-04-18] MEDS: METOPROLOL SUCCINATE EXT REL 25 MG TABCR PO (08:00)
[2021-04-18] MEDS: ISOSORBIDE MONONITRATE 30 MG TAB.ER.24H PO (08:00)
--- NOTE | 2021-04-18 08:16 | PM.DS ---
DS: Admitting Diagnosis Discharge Date 04/18/2021 Admitting Diagnosis cough and shortness of breath DS: Discharge Diagnosis Discharge Diagnosis (1) Multifocal pneumonia: Code(s): J18.9 - Pneumonia, unspecified organism Status: Acute Assessment and Plan: ABG on admission 7.4 Along with COPD exacerbation On IV steroid bronchodilators along with ceftriaxone and azithromycin BNP 171, negative troponin Chest x-ray with elevated right hemidiaphragm with discoid atelectasis at right lung base CTA negative for PE noted ground-glass opacities in left lower lobe and right lower lobe suspicious for multifocal pneumonia Blood culture has been negative Remains on room air pulmonary was consulted Improved apparent Switch to Augmentin and discharged on prednisone taper as suggested by pulmonary he will follow-up with pulmonary in 2 weeks Added on Symbicort at discharge for his underlying COPD (2) Persistent cough: Code(s): R05.3 - Chronic cough Status: Acute Assessment and Plan: Supportive care Continue to monitor Echo with normal ejection fraction 55-60% no significant valvular abnormality (3) COVID-19 long hauler manifesting chronic dyspnea: Code(s): R06.09 - Other forms of dyspnea; U09.9 - Post COVID-19 condition, unspecified Status: Acute Assessment and Plan: COVID infection recently Repeat testing this admission on 04/15/2021 Pulmonology consulted DS: Summary Hospital Course Hospital Course: see above Time Spent with Patient Time attestation: Total time spent providing and/or coordinating discharge services: 40 minutes Exam Narrative: Patient is comfortable, NAD HEENT: eyes are clear and none icteric LUNGS: bilateral fair air entry with no wheezing noted HEART: RR S1S2 ABD: BS+, Soft and nontender Lower extremities: no edema cyanosis or clubbing SKIN: nonjaundiced Neuro: grossly intact. Alert and oriented x3 DS: Data Data Completed and Pending Completed studies during hospitalization: echocardiogram on 04/16/2021 Exam Type: CA echo doppler color flow Study Info Indications R06.02 - Shortness of breath Complete two-dimensional, color flow and Doppler transthoracic echocardiogram is performed. Summary 1. Complete two-dimensional, color flow and Doppler transthoracic echocardiogram is performed. 2. Left ventricular chamber dimension is normal. 3. Left ventricular systolic function is normal, estimated at 55-60%. 4. Left atrial chamber dimension is mildly enlarged. 5. There is trace mitral valve regurgitation. 6. There is mild aortic valve sclerosis. Left Ventricle Left ventricular chamber dimension is normal. Left ventricular systolic function is normal, estimated at 55-60%. The left ventricular diastolic function is normal. Right Ventricle Right ventricular chamber dimension is normal. Left Atria Left atrial chamber dimension is mildly enlarged. Right Atria Right atrial chamber dimension is normal. Aortic Valve The aortic valve is trileaflet. There is mild aortic valve sclerosis. Pulmonic Valve The pulmonic valve is normal. Mitral Valve The mitral valve has normal leaflets. There is trace mitral valve regurgitation. Tricuspid Valve The tricuspid valve leaflets are normal. Pericardium/Pleural The pericardium appears normal. Aorta The aortic root size at the sinus of Valsalva is normal. Labs on day of discharge: Labs from last 24 hours 04/18/21 04/18/21 05:37 05:37 WBC 13.5 H RBC 3.20 L Hgb 10.4 L Hct 31.0 L MCV 96.9 MCH 32.5 MCHC 33.5 RDW 12.7 Plt Count 165 MPV 10.9 H Immature Gran % (Auto) 0.6 H Neut % (Auto) 88.1 H Lymph % (Auto) 6.5 L Ulster % (Auto) 4.7 Eos % (Auto) 0.0 Baso % (Auto) 0.1 L Lymph # (Auto) 0.88 L Ulster # (Auto) 0.6 Eos # (Auto) 0.0 Baso # (Au
[2021-04-18] MEDS: ASPIRIN 81 MG ENTERIC TABLET PO (08:24)
== END 2021-04-18 10:43 | disposition home or self-care (01) | DRG 190 ==
LOC: ANHED 19:06 → ANHIMU 20:15 → ANH2MED 04-18 08:16 → ANHIMU 04-19 13:43
PROVIDERS: Family Medicine; Admitting Provider Internal Medicine; Emergency Provider General Practice; PCP Family Medicine; Visit Provider Internal Medicine
DX: J44.0 Chronic obstructive pulmonary disease with (acute) lower respiratory infection (principal); J18.9 Pneumonia, unspecified organism; J96.11 Chronic respiratory failure with hypoxia; J44.1 Chronic obstructive pulmonary disease with (acute) exacerbation; J98.6 Disorders of diaphragm; R05.3 Chronic cough; U09.9 Post COVID-19 condition, unspecified; Z20.822 Contact with and (suspected) exposure to COVID-19; I10 Essential (primary) hypertension; E86.0 Dehydration; E78.5 Hyperlipidemia, unspecified; D64.9 Anemia, unspecified; K21.9 Gastro-esophageal reflux disease without esophagitis; F41.9 Anxiety disorder, unspecified; Z87.891 Personal history of nicotine dependence; I25.2 Old myocardial infarction
CPT/HCPCS: 36415; 36600; 71045; 71275; 80048; 80053; 81003; 82375; 82805; 83050; 83605; 83735; 83880; 84484; 85025; 85055; 85380; 85610; 85730; 86140; 87040; 87804; 93005; 93306; 94640; 96361; 96365; 96366; 96372; 96375; 96376; 99285; A9270; C9803; G0378; J0456; J0696; J1650; J2920; J7030; J7040; J7512; Q9967; U0003; U0005

== ENCOUNTER 2023-04-26 10:55 | Emergency (ER) | payer MEDICARE, SELFPAY ==
--- NOTE | ~2023-04-26 | CT_ITS ---
EXAMINATION: CTA chest abdomen pelvis DATE: 04/26/2023 12:34 INDICATION: Aortic aneurysm. Epigastric abdominal pain. TECHNIQUE: Computed tomographic angiography (CTA) of the chest, abdomen, and pelvis was performed wit h 100 mL Omnipaque-350 intravenous contrast. Automated exposure control and iterative reconstruction technique were employed. The dose-length product was 1083.67 mGy-cm. Maximum intensity projection 3D- reconstructions of the aorta and other arteries were constructed by the technologist on a separate wo rkstation. COMPARISON: Chest CT 04/15/2021 FINDINGS: CHEST CTA: There is mild emphysema. There is a 12 mm nodule in right lower lobe. There is mild atelectasis in ri ght lower lobe. Calcified pulmonary nodules are consistent with old and calcified right hilar lymph n odes are consistent with old edematous disease. There are centrilobular nodules and tree-in-bud opaci ties in left lower lobe, consistent with pneumonia. No pleural effusion. The heart size is normal. Th ere are coronary artery calcifications. No pericardial effusion. There are bridging endplate osteophy gaurav at multiple levels in the spine, consistent with diffuse idiopathic skeletal hyperostosis (DISH). ABDOMEN AND PELVIS CTA: There is a 5 mm cyst in the liver. The spleen, gallbladder, pancreas, and adrenal glands are normal. 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 Left kidney is normal. There is a 5. 6 cm fusiform aneurysm of infrarenal aorta. There is a stent graft in expected position. There is inc reased attenuation in the aneurysm sac inferiorly. The prostate is mildly enlarged. There are no dila souleymane loops of bowel. The appendix is not visualized. There are no pathologically enlarged lymph nodes. There is no free intraperitoneal fluid. There is moderate lumbar spondylosis. IMPRESSION: 1. 5.6 cm fusiform aneurysm of infrarenal aorta with stent graft in expected position. Increased dens ity in the aneurysm sac inferiorly may be a calcifications or an endoleak. Comparison with a noncontr ast CT is recommended. 2. Left lower lobe pneumonia. 3. 12 mm right lower lobe pulmonary nodule, which may be infection or primary bronchogenic carcinoma. Noncontrast low-dose chest CT is recommended in one month. Reviewed, dictated and finalized at location A. RNAL CONTROLS MANAGER IMPRESSION: 1. 5.6 cm fusiform aneurysm of infrarenal aorta with stent graft in expected po sition. Increased density in the aneurysm sac inferiorly may be a calcification s or an endoleak. Comparison with a noncontrast CT is recommended. 2. Left lower lobe pneumonia. 3. 12 mm right lower lobe pulmonary nodule, which may be infection or primary b ronchogenic carcinoma. Noncontrast low-dose chest CT is recommended in one jacob h.
--- NOTE | ~2023-04-26 | XR_ITS ---
EXAMINATION: XR chest 1V portable DATE: 04/26/2023 11:26 INDICATION: Fever. TECHNIQUE: A single frontal view of the chest was obtained. COMPARISON: Chest single view 04/15/2021, chest CT 04/15/2021 FINDINGS: There is marked elevation of right hemidiaphragm. There is mild atelectasis at right lung b ase. No pleural effusion or pneumothorax. The heart size is normal. IMPRESSION: 1. Chronic marked elevation of right hemidiaphragm with mild atelectasis at right lung base. Reviewed, dictated and finalized at location A. NING CONSULTANT IMPRESSION: 1. Chronic marked elevation of right hemidiaphragm with mild atelectasis at rig ht lung base.
[2023-04-26 11:08] VITALS: BP 125/72; PULSE 84; RESP 18; TEMP 36.9; O2SAT 94
[2023-04-26 11:33] LABS: Basophils Percent Auto 0.3 % (0.2-1.2); Eosinophils Absolute Auto 0.1 K/mm3 (0-0.3); Eosinophils Percent Auto 0.6 % (0-4.4); Hematocrit 40.3 % (42.0-52.0); Hemoglobin 12.8 g/dL (14.0-18.0); Immature Granulocyte Absolute 0.05 K/mm3 (0.00-0.031); Immature Granulocyte Percent A 0.4 % (0-0.5); Lymphocytes Absolute Auto 1.06 K/mm3 (0.9-3.2); Lymphocytes Percent Auto 9.2 % (18.3-44.2); Mean Corpuscular HGB Conc 31.8 g/dl (32-36); Mean Corpuscular Hemoglobin 31.4 pg (26-34); Mean Platelet Volume 9.9 fl (7.4-10.4); Monocytes Absolute Auto 0.8 K/mm3 (0.1-0.6); Monocytes Percent Auto 7.3 % (2.6-8.5); Neutrophils Absolute Auto 9.4 K/mm3 (1.3-6.7); Neutrophils Percent Auto 82.2 % (45.5-73.1); Platelet Count Result 208 k/mm3 (150-375); Red Blood Count 4.07 M/mm3 (4.6-6.20); Red Cell Distribution Width 13.1 % (11.5-14.5); White Blood Count 11.5 K/mm3 (4.5-10.0)
--- NOTE | 2023-04-26 11:37 | ED.FEVER ---
HPI - Fever General Chief Complaint: Fever Stated Complaint: fever, cough Time Seen by Provider: 04/26/23 11:14 History of Present Illness HPI Narrative: 72-year-old male presenting to the emergency department for evaluation of increased cough and congestion over the last 5 days. Patient reports cough congestion low-grade fever. Patient also has a history of aortic aneurysm that was repaired at [facility] and patient follows up with Dr. Akhtar. Patient reports he does have increased abdominal pain secondary to all the coughing. Related Data Home Medications Medication Instructions Recorded Confirmed aspirin 81 mg tablet,delayed 1 mg PO DAILY 04/15/21 05/04/21 release citalopram 20 mg tablet 20 mg PO DAILY 04/15/21 05/04/21 diltiazem HCl 180 mg 180 mg PO HS 04/15/21 05/04/21 capsule,extended release 24 hr hydrocodone 7.5 mg-acetaminophen 1 tablet PO Q6H 04/15/21 05/04/21 325 mg tablet isosorbide mononitrate 30 mg 30 mg PO DAILY 04/15/21 05/04/21 tablet,extended release 24 hr lisinopril 20 2 tablet PO HS 04/15/21 05/04/21 mg-hydrochlorothiazide 12.5 mg tablet metoprolol succinate 50 mg 1 mg PO DAILY 04/15/21 05/04/21 tablet,extended release 24 hr multivit,Ca,min-iron 8 mg-folic 1 tablet PO DAILY 04/15/21 05/04/21 acid 200 mcg-lycopene 600 mcg tablet (Centrum Men) pantoprazole 40 mg tablet,delayed 40 mg PO DAILY 04/15/21 05/04/21 release polyethylene glycol 3350 17 17 g PO EVERY OTHER DAY 04/15/21 05/04/21 gram/dose oral powder (Miralax) rosuvastatin 20 mg tablet 20 mg PO DAILY 04/15/21 05/04/21 Allergies Allergy/AdvReac Type Severity Reaction Status Date / Time No Known Allergies Allergy Verified 04/26/23 11:13 Review of Systems Review of Systems: All systems reviewed & are unremarkable except as noted in HPI and below PMFSH Past Medical History Medical History AAA (abdominal aortic aneurysm) Anxiety Hypertension Myocardial infarction Surgical History Surgical History History of back surgery S/P AAA repair Family History Family History Sibling Cancer Father Cancer Mother Tuberculosis Father Heart attack Social History Social History Smoking packs per day: 1.5 Smoking cigarettes per day: 30.0 Years smoked: 20 Smoking pack-years: 30.00 Smoking status: Former smoker Spiritual care concerns: No Exam Narrative: APPEARANCE: Well appearing, no pain, no distress, well-nourished. HEAD: normocephalic, atraumatic. EYES: PERRLA/EOMI, conjunctivae clear. NOSE: Normal no drainage EARS:TMS clear with good light reflex. THROAT: Pharynx clear, no exudate. NECK: Supple. No adenopathy, no masses. RESPIRATORY: Airway patent, respirations nonlabored. Clear to auscultation bilaterally, no rales, rhonchi, wheezing. CARDIOVASCULAR: Regular rate and rhythm without murmurs rubs or gallops. ABDOMINAL: Soft, nontender, nondistended, normal bowel sounds. No palpable mass MUSCULOSKELETAL: Moves all extremities. Strength/ROM intact, No edema, No calf tenderness. NEURO: Alert. Cranial nerves II through XII intact. Grossly intact SKIN: Warm, dry. Normal Color Course Course Emergency Course: Patient was discharged home with instructions to have close follow-up with vascular surgery. Patient was treated for pneumonia Vital Signs Vital signs: Vital Signs Temperature 98.4 F 04/26/23 11:08 Pulse Rate 84 04/26/23 11:08 Respiratory Rate 18 04/26/23 11:08 Blood Pressure 125/72 04/26/23 11:08 Pulse Oximetry 94 04/26/23 11:08 Oxygen Delivery Room Air 04/26/23 11:08 Temperature 98.4 F 04/26/23 11:08 Pulse Rate 63 04/26/23 14:10 Respiratory Rate 14 04/26/23 14:10 Blood Pressure 138/90 04/26/23 14:10 Pulse O
[2023-04-26 11:48] LABS: Alanine Aminotransferase 18 U/L (6-50); Albumin Level 4.2 g/dL (3.5-5.1); Alkaline Phosphatase 115 U/L (38-126); Anion Gap 9 mmol/L (8-16); Aspartate Amino Transferase 35 U/L (17-59); Bilirubin,Total 0.9 mg/dL (0.2-1.3); Blood Urea Nitrogen 17 mg/dL (9-20); Calcium 9.7 mg/dL (8.4-10.2); Carbon Dioxide 26 mmol/L (22-30); Chloride 103 mmol/L (98-107); Estimated CRCL calculation 94 ml/min; Estimated Glomerular Filt Rate > 60; Glucose 127 mg/dL (65-110); Potassium 3.8 mmol/L (3.4-5.0); Sodium 138 mmol/L (137-145)
[2023-04-26 12:00] VITALS: BP 123/66; PULSE 79; RESP 14; RESP 18; O2SAT 94; O2SAT 95
[2023-04-26 12:00] LABS: Appearance Urine Cloudy (Clear); Bacteria Urine None Seen /hpf; Bilirubin Urine Negative (Negative); Blood Urine Negative (Negative); Color Urine Dark Yellow (Yellow); Glucose Urine UA Negative (Negative); Ketones Urine 2+ mg/dL (Negative); Leukocyte Esterase Ur Negative LEU/UL (Negative); Nitrate Urine Negative (Negative); Protein Urine Trace mg/dL (Negative); RBC Urine 0-2 /hpf (0-2); Specific Grav Ur 1.028 (1.001-1.035); Squamous Epithelial Cell Urine None seen /hpf (Few); WBC Urine 0-5 /hpf; pH Urine 5.5 (5.0-9.0)
[2023-04-26 12:01] LABS: Add Urine Microscopic? YES
[2023-04-26 12:10] LABS: Influenza A QL RT-PCR Negative (Negative); Influenza B QL RT-PCR Negative (Negative); RSV RNA, RT-PCR Negative (Negative); SARS-CoV-2 RNA PCR Negative (Negative)
[2023-04-26 13:05] VITALS: BP 129/67; PULSE 74; RESP 16; O2SAT 95
[2023-04-26] MEDS: DOXYCYCLINE HYCLATE 100 MG TABLET PO (14:08)
[2023-04-26 14:10] VITALS: BP 138/90; PULSE 63; RESP 14; O2SAT 100
== END 2023-04-26 14:10 | disposition home or self-care (01) ==
PROVIDERS: Emergency Provider Emergency Medicine; PCP Family Medicine
DX: J18.9 Pneumonia, unspecified organism (principal); Z20.822 Contact with and (suspected) exposure to COVID-19; I10 Essential (primary) hypertension; I25.2 Old myocardial infarction; F41.9 Anxiety disorder, unspecified; Z95.828 Presence of other vascular implants and grafts; Z87.891 Personal history of nicotine dependence; Z79.82 Long term (current) use of aspirin; R91.1 Solitary pulmonary nodule
CPT/HCPCS: 36415; 71045; 71275; 74174; 80053; 81001; 85025; 87637; 99284; A9270; Q9967